=== PATIENT | male | born 1970 ===

== ENCOUNTER 2021-10-20 09:57 | Emergency (ER) | payer OTHER ==
[2021-10-20 10:43] LABS: HEMOGLOBIN 15.3 gm/dl (14.0-17.5); RED BLOOD COUNT 4.65 M/UL (4.20-5.50)
[2021-10-20 12:25] LABS: BUN/CREATININE RATIO 9 (0-10)
[2021-10-20] MEDS ORDERED: ZOFRAN ODT 4 MG4 MG SL (16:56)
== END 2021-10-20 17:05 | disposition home or self-care (01) ==
LOC: ER1 09:57
PROVIDERS: Physician Assistant
DX: K80.20 Calculus of gallbladder without cholecystitis without obstruction (principal); E11.9 Type 2 diabetes mellitus without complications; I10 Essential (primary) hypertension
CPT/HCPCS: 80053; 81001; 82009; 82550; 82553; 83690; 84484; 85025; 93005; 96374; 99285; J2405; Q9967

== ENCOUNTER 2021-10-22 20:05 | Emergency (ER) | payer OTHER ==
[~2021-10-22 20:05] MED LIST: ZOFRAN ODT 4 MG4 MG SL
[2021-10-22 20:39] LABS: HEMOGLOBIN 15.2 gm/dl (14.0-17.5); RED BLOOD COUNT 4.61 M/UL (4.20-5.50); WHITE BLOOD COUNT 8.7 K/UL (4.5-11.0)
[2021-10-22 21:08] LABS: BUN/CREATININE RATIO 20 (0-10)
[2021-10-22] MEDS ORDERED: LACTULOSE10 GM/152 PO (22:21)
[2021-10-22] MEDS ORDERED: ZOFRAN 4 MG TAB4 MG PO (22:21)
== END 2021-10-22 22:41 | disposition home or self-care (01) ==
LOC: ER1 20:05
PROVIDERS: Emergency Medicine
DX: K80.20 Calculus of gallbladder without cholecystitis without obstruction (principal); K59.00 Constipation, unspecified; E11.9 Type 2 diabetes mellitus without complications; Z20.822 Contact with and (suspected) exposure to COVID-19
CPT/HCPCS: 71045; 74018; 80053; 82962; 83690; 84484; 85025; 86140; 93005; 96374; 99284; J2765; U0002